=== PATIENT | male | born 1960 | race Caucasian/White ===

== ENCOUNTER 2016-08-15 14:49 | Emergency (ER) | payer OTHER ==
[~2016-08-15] VITALS: Ht 182.9 cm; Wt 107.5 kg
[~2016-08-15 14:49] MED LIST: ADDERALL20 MG PO; CENTRUM1 TA1 PO; CIPRO 500MG TA500 MG PO; DITROPAN 5MG TAB5 MG PO; DIVALPROEX DR500 MG PO; KOMBIGLYZE XR 11 TE1 PO; LANSOPRAZOLE15 MG PO; LEVOTHYROXIN0.075 MG PO; LORTAB 5/500 501 TAB PO; METAXALONE800 MG PO; METFORMIN500 MG PO; NAPROSYN 500MG500 MG PO; NEURONTIN 300M300 MG PO; RISPERDAL 0.50.5 MG NG; SEPTRA DS 800 M1 TAB PO; SIMVASTATIN80 MG PO; TAMSULOSIN HYD0.4 MG PO; TRADJENTA5 MG PO; VICODIN 5/500 T1 TAB PO; VISTARIL25 MG PO; VOLTAREN75 MG PO; [UNRECOGNIZED DRUG - OTHER] OR
--- NOTE | 2016-08-15 16:11 | Emergency Room Report ---
History of Present Illness Time Seen by [id number] Presenting Problem in Triage Pt arrived:Walked Presenting Problem:LACERATION TO L INDEX FINGER, PT REPORTS CUT FINGER ON A PIECE OF GLASS Onset of symptoms date/time:08/15/16/ or onset unknown for:MEDICAL HX UNKNOWN Treatment Prior to Arrival: [employer] Provided by: Sepsis Risk Assessment: Temp: 98.5 B/P: 137/89 MAP: 105 Pulse: 87 Resp: 18 Recent fever? N Clinical Suspician of Infection? N Mental Status: 1 - Regular (Normal Baseline) Sepsis Risk:Low Sepsis Risk Have you (or family members/close friends) recently traveled outside the [place]? N If Yes, where/when: Have you had exposure to infectious disease within the past month? N TB? Other? Specify: Comment The patient sustained a cut to his LEFT index finger this morning from a shattering glass. He does not ink that he has any retained foreign body. Last tetanus immunization is 2012. He was unable to stop the bleeding despite bandaging it several times and therefore came to the emergency room. He is not on any blood thinners. ALLERGIES Coded Allergies: alprazolam (From XANAX) (02/17/16) cephalexin (02/17/16) metoclopramide (From REGLAN) (02/17/16) Home Medications Reported Medications Simvastatin 40 MG PO QHS Multivitamin And Minerals2 (Centrum) 1 TAB PO DAILY Linagliptin (Tradjenta) 5 MG PO DAILY Lansoprazole 15 MG PO DAILY Gabapentin (Neurontin 300MG) 300 MG PO BID Divalproex Sodium (Divalproex Dr) 500 MG PO QHS Levothyroxine Sodium 0.075 MG PO DAILY Risperidone (Risperdal 0.5 Mg Tablet) 0.5 MG NG SAXAGLIPTIN HCL/METFORMIN HCL (Kombiglyze XR 5-1,000 MG Tab) 1 TER PO DAILY Metaxalone 800 MG PO DAILY [TRADGENTA] 1 TAB OR DAILY TAMSULOSIN HCL (Tamsulosin 0.4MG) 0.4 MG PO QHS Hydroxyzine Pamoate (Vistaril) 50 MG PO DAILY Amphetamine Salt Combination (Adderall) 20 MG PO DAILY History Medical History General CAD? No Angina: No [place]: No Hypertension? Yes Hyperlipidemia? Yes CHF? No DVT? No PE? No COPD? No Asthma? No Anemia? No GERD? No Gastric ulcers? No GI Bleed? No Hernia? No Thyroid Problems? Yes Hypothyroidism? Yes CVA? No Seizures? No Diabetes? Yes Insulin Dependent: Yes Insulin Pump: No Home FSBS? Yes Renal Insuffiency? No End Stage Renal Disease? No UTI? No Stones? No GB Disease: No Nephritic Syndrome? No Asplenia? No Hepatitis? No Sickle Cell Disease? No Arthritis? No Migraines? No Cataracts? No Glaucoma? No MRSA? No HIV? No TB? No Anxiety? Yes Depression? Yes Cancer? No More? No Immunization Hx DT/Tetanus 12/20/12 Surgical Hx Previous Surgery?Y Back LAP BAND SLEEP APNEA CARPAL TUNNEL TENNIS ELBOW Social History Smoking Hx Smoker: Never Smoker Tobacco: No Alcohol Alcohol: No Review of Systems All Other Systems Reviewed and Negative Skin see HPI Psychiatric/Neurological denies numbness, denies weakness Physical Exam Vital Signs Vital Signs Date Time Temp Pulse Resp B/P Pulse O2 O2 Flow FiO2 Ox Delivery Rate 08/15 1500 98.5 87 18 137/89 100 General Appearance normal appearance Respiratory Status No: respiratory distress. Cardiovascular normal peripheral pulses Extremities 1 cm laceration radial side of the LEFT index finger at the DIP joint. Mild amount of active bleeding. normal vascular status intact. Normal strength and sensation, normal range of motion. Neurologic alert, no motor/sensory deficits Medical Decision Making LABS/Meds/Orders Pt receiving controlled substance in ED? No Results/Orders Current Medication Orders Sig/Refugio Start time Last Medication Dose Route Stop Time Status Admin Lidocaine HCl 0 .STK-MED ONE 08/15 1633 DC .ROUTE Lidocaine HCl 10 ML ONCE ONE 08/15 1615 DC 08/15 SC 08/15 1616 1632 Orders Procedure Date/time Status [id number] (INDEX)-3 VIEWS 08/15 1608 Active XRAY/CT/US XRAY/CT/US XRAY finger(s) Comment Interpreted by Mag Dubose MD. Negative for fracture, dislocation, or foreign body. Procedures Laceration/Wound Repair Progress Laceration Repair Performed by: MAG DUBOSE Consent: Verbal consent obtained. Risks and benefits: risks, benefits and alternatives were discussed Consent given by: patient Patient identity confirmed: verbally with patient Laceration location: LEFT index finger Laceration length: 1 cm Local anesthetic: 1 percent lidocaine plain Wound prep: Sterilly scrubbed with Hibiclens and irrigated with copious normal saline. Draping: Sterile in usual manner Patient sedated: no Debridement: minimal Exploration: No foreign body or deep structure injury found Layers Closed: Skin Suture material: 5-0 Prolene Number of sutures: 3 Repair complexity: Simple Patient tolerance: Patient tolerated the procedure well with no immediate complications Departure Departure Disposition DC Home or Self Care(routine) Clinical Impression Primary Impression: Finger laceration Qualifiers: Encounter type: initial encounter Qualified Code: S61.219A - Laceration without foreign body of unspecified finger without damage to nail, initial encounter Condition STABLE Referrals Prosper Lucero MD (Family) Patient Instructions DI for Laceration Repair Additional Instructions Additional instructions for HAND LACERATION: Clean the wound daily with soap and water. Avoid submerging the wound. No swimming.DO NOT USE any antibiotic ointment such as Neosporin, Polysporin, or triple antibiotic. This will delay healing. See your primary care physician or return in 10 days for suture removal. Return if any signs of infection including increasing pain, pus drainage, swelling, redness, red streaks, or fever. ED Critical Care Critical Care No at [id number]
[2016-08-15 17:02] VITALS: BP 128/76
--- NOTE | 2016-08-16 06:13 | RADIOLOGY REPORT PS360 ---
[id number] (INDEX)-3 VIEWS CLINICAL INDICATION: Open laceration, foreign body evaluation cut on broken glass, r/o fb ORDERING PHYSICIAN: Wai Brush MD PATIENT AGE: 56 years COMPARISON: None FINDINGS: No fracture or dislocation. No radio opaque foreign body apparent IMPRESSION: Negative left index finger
== END 2016-08-15 17:03 | disposition home or self-care (01) ==
LOC: ER 14:49
PROC: 0HQGXZZ Repair Left Hand Skin, External Approach (ICD-10-PCS; principal; 2016-08-15)
DX: S61.211A Laceration without foreign body of left index finger without damage to nail, initial encounter (principal); W25.XXXA Contact with sharp glass, initial encounter; Y92.009 Unspecified place in unspecified non-institutional (private) residence as the place of occurrence of the external cause

== ENCOUNTER → 2017-01-10 | Outpatient (CLI) | payer OTHER ==
[2017-01-10 13:29] LABS: BUN 21 mg/dL (7-18)
[2017-01-10 13:34] LABS: GFR (ESTIMATED) 78 ML/MIN (>60)
== END ==
LOC: LAB 10:50
PROVIDERS: Internal Medicine Adolescent Medicine
DX: E11.9 Type 2 diabetes mellitus without complications (principal); E78.5 Hyperlipidemia, unspecified